=== PATIENT | male | born 1940 | race Caucasian/White ===

== ENCOUNTER 2018-04-06 10:56 | Emergency (ER) | payer OTHER ==
[~2018-04-06] VITALS: Ht 182.9 cm; Wt 102.1 kg
[2018-04-06] MEDS ORDERED: TESSALON PERLE100 M1 (11:32)
[2018-04-06] MEDS ORDERED: VENTOLIN HFA18 GM (11:33)
[2018-04-06] MEDS ORDERED: CRESTOR40 MG (11:33)
[2018-04-06] MEDS ORDERED: CARVEDILOL25 MG (11:34)
== END 2018-04-06 20:10 | disposition home or self-care (01) ==
LOC: ER 10:56
DX: J40 Bronchitis, not specified as acute or chronic (principal)